=== PATIENT | female | born 2000 | race Caucasian/White ===

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

== ENCOUNTER 2020-05-15 15:25 | Outpatient (CLI) | payer OTHER ==
[2020-05-15 17:16] LABS: APPEARANCE,URINE SLIGHTLY-CLOUDY; BILIRUBIN,URINE NEGATIVE (NEGATIVE); COLOR,URINE YELLOW; GLUCOSE, URINE NEGATIVE (NEGATIVE); KETONES,URINE TRACE mg/dL (NEGATIVE); LEUKOCYTE ESTERASE,URINE LARGE (NEGATIVE); NITRITE,URINE NEGATIVE (NEGATIVE); PROTEIN,URINE NEGATIVE (NEGATIVE); URINE SPECIFIC GRAVITY 1.008; UROBILINOGEN,URINE NEGATIVE mg/dL (<2.0)
--- NOTE | 2020-05-15 17:39 | Non Stress Test Report ---
Non Stress Test Datetime Report Generated by CPN: 05/15/2020 17:38 DEMOGRAPHIC Test Number: 1 EGA NST: 33.0 VITAL SIGNS Temperature - NST: 99.8 Pulse - NST: 86 RESP - NST: 16 NBPSYS NST: 116 NBPDIA NST: 57 MONITORING Monitor Explained: Monitor Explained; Test Explained; Patient Verbalized Understanding Time on Monitor: 05/15/2020 15:47 Time off Monitor: 05/15/2020 17:06 NST Duration: 79 NST INTERVENTIONS NST Interventions: PO Hydration; IV Fluids; Reposition Patient Physician Notified NST: Dr Agapito BABY A: [id number] BABY A Movement : Present Contraction Frequency : 2-10 FHR Baseline : 150 Accelerations : 15X15 Decelerations : None Variability : Moderate 6-25bpm NST Review: Meets Criteria for Reactive NST NST Review and Verified By : Daysi Sullivan RN NST Results: Reactive NST REPORT Report Trigger: Send Report
[2020-05-15 17:40] LABS: URINE AMPHETAMINES SCREEN NEGATIVE; URINE BARBITURATES SCREEN NEGATIVE; URINE BENZODIAZEPINES SCREEN NEGATIVE; URINE COCAINE SCREEN NEGATIVE; URINE MARIJUANA (THC) SCREEN NEGATIVE; URINE METHADONE SCREEN NEGATIVE; URINE PHENCYCLIDINE SCREEN NEGATIVE
[2020-05-15] MEDS ORDERED: LIDOCAINE 1% INJ-PF (10 MG/ML) 30 ML SDV INFIL ONE (17:50)
[2020-05-15] MEDS: CEFTRIAXONE INJ 1000 MG VIAL ONE (18:02)
[2020-05-15] MEDS: RINGERS SOLUTION,LACTATED 1,000 ML IV PRN (18:03)
[2020-05-15] MEDS: HYDROXYZINE PAMOATE 50 MG CAPSULE ONE (18:04)
[2020-05-15] MEDS: HYDROXYZINE PAMOATE 50 MG CAPSULE PO ONE (18:04)
[2020-05-15] MEDS ORDERED: CEFTRIAXONE INJ 1000 MG VIAL IV ONE (18:10)
--- NOTE | 2020-05-15 18:55 | RADIOLOGY REPORT (SQ) ---
EXAM DESCRIPTION: U/S OB LIMITED IMAGES COMPLETED DATE/TIME: 05/15/2020 5:49 pm REASON FOR STUDY: CERVICAL LENGTH COMPARISON: None. TECHNIQUE: Limited transvaginal grayscale ultrasound for evaluation of specific requested obstetrica l parameters. LIMITATIONS: None. FINDINGS: CERVICAL LENGTH: 2.2 cm Closed. LvP: 5.5 cm FHR: 141 beats per minute. PRESENTATION: Cephalic. PLACENTA: Not assessed ANATOMY: Not assessed OTHER: No other significant findings. IMPRESSION: LIMITED OBSTETRICAL ULTRASOUND WITH MEASURED PARAMETERS DELINEATED ABOVE. Trimester of : Third trimester - 28 weeks to delivery. TECHNICAL DOCUMENTATION: JOB ID: [id number] [employer]- All Rights Reserved Reading location - IP/workstation name: [email or web address]
== END 2020-05-15 18:14 | disposition home or self-care (01) ==
LOC: LC 15:25
PROVIDERS: ATTEND Obstetrics & Gynecology
DX: O23.43 Unspecified infection of urinary tract in pregnancy, third trimester (principal); O47.03 False labor before 37 completed weeks of gestation, third trimester; Z3A.33 33 weeks gestation of pregnancy
CPT/HCPCS: 59025; 87086; 81005; 80307; 76815; J0696

== ENCOUNTER 2020-05-22 14:23 | Outpatient (CLI) | payer OTHER ==
[2020-05-22 16:04] LABS: APPEARANCE,URINE CLEAR; BILIRUBIN,URINE NEGATIVE (NEGATIVE); COLOR,URINE YELLOW; GLUCOSE, URINE NEGATIVE (NEGATIVE); KETONES,URINE NEGATIVE (NEGATIVE); LEUKOCYTE ESTERASE,URINE LARGE (NEGATIVE); NITRITE,URINE NEGATIVE (NEGATIVE); PROTEIN,URINE NEGATIVE (NEGATIVE); UROBILINOGEN,URINE NEGATIVE mg/dL (<2.0)
[2020-05-22 16:21] LABS: URINE AMPHETAMINES SCREEN NEGATIVE; URINE BARBITURATES SCREEN NEGATIVE; URINE BENZODIAZEPINES SCREEN NEGATIVE; URINE COCAINE SCREEN NEGATIVE; URINE MARIJUANA (THC) SCREEN NEGATIVE; URINE METHADONE SCREEN NEGATIVE; URINE PHENCYCLIDINE SCREEN NEGATIVE
--- NOTE | 2020-05-22 16:21 | Non Stress Test Report ---
Non Stress Test Datetime Report Generated by CPN: 05/22/2020 16:21 DEMOGRAPHIC EGA NST: 34.0 INDICATION Indication for Study (NST) Other: contractions/back pain VITAL SIGNS Temperature - NST: 97.6 MONITORING Monitor Explained: Monitor Explained; Test Explained; Patient Verbalized Understanding Time on Monitor: 05/22/2020 14:40 Time off Monitor: 05/22/2020 16:15 NST Duration: 95 NST INTERVENTIONS NST Interventions: PO Hydration Physician Notified NST: P. Avalos, CNM BABY A: [id number] BABY A Movement : Present Contraction Frequency : Irregular FHR Baseline : 150 Accelerations : 15X15 Decelerations : None Variability : Moderate 6-25bpm NST Review: Meets Criteria for Reactive NST NST Review and Verified By : Chito Rosa RN NST Results: Reactive NST REPORT Report Trigger: Send Report
== END 2020-05-22 16:25 | disposition home or self-care (01) ==
LOC: LC 14:23
PROVIDERS: ATTEND Obstetrics & Gynecology Gynecology
DX: O47.03 False labor before 37 completed weeks of gestation, third trimester (principal); Z3A.34 34 weeks gestation of pregnancy
CPT/HCPCS: 59025; 80307; 81001

== ENCOUNTER 2020-06-03 17:50 | Outpatient (CLI) | payer OTHER ==
[2020-06-03] MEDS ORDERED: RINGERS SOLUTION,LACTATED 1,000 ML IV PRN (18:58)
[2020-06-03 19:33] LABS: APPEARANCE,URINE CLEAR; BILIRUBIN,URINE NEGATIVE (NEGATIVE); COLOR,URINE STRAW; GLUCOSE, URINE NEGATIVE (NEGATIVE); KETONES,URINE 20 mg/dL (NEGATIVE); LEUKOCYTE ESTERASE,URINE SMALL (NEGATIVE); NITRITE,URINE NEGATIVE (NEGATIVE); PROTEIN,URINE NEGATIVE (NEGATIVE); URINE SPECIFIC GRAVITY 1.002; UROBILINOGEN,URINE NEGATIVE mg/dL (<2.0)
[2020-06-03 19:54] LABS: URINE AMPHETAMINES SCREEN NEGATIVE; URINE BARBITURATES SCREEN NEGATIVE; URINE BENZODIAZEPINES SCREEN NEGATIVE; URINE COCAINE SCREEN NEGATIVE; URINE MARIJUANA (THC) SCREEN NEGATIVE; URINE METHADONE SCREEN NEGATIVE; URINE PHENCYCLIDINE SCREEN NEGATIVE
--- NOTE | 2020-06-03 20:22 | Non Stress Test Report ---
Non Stress Test Datetime Report Generated by CPN: 06/03/2020 20:21 DEMOGRAPHIC EGA NST: 35.5 INDICATION Indication for Study (NST) Other: LC- ctx URINE RESULTS Urine Ketones - NST: Positive MONITORING Monitor Explained: Monitor Explained; Test Explained; Patient Verbalized Understanding Time on Monitor: 06/03/2020 18:13 Time off Monitor: 06/03/2020 20:11 NST Duration: 118 NST INTERVENTIONS NST Interventions: PO Hydration; IV Fluids; Reposition Patient Physician Notified NST: Dr. Odell BABY A: [id number] BABY A Movement : Present Contraction Frequency : 2-5 FHR Baseline : 135 Accelerations : 15X15 Decelerations : None Variability : Moderate 6-25bpm NST Review: Meets Criteria for Reactive NST NST Review and Verified By : Court Melendez RN NST Results: Reactive NST REPORT Report Trigger: Send Report
== END 2020-06-03 20:20 | disposition home or self-care (01) ==
LOC: LC 17:50
PROVIDERS: ATTEND Obstetrics & Gynecology
DX: O26.893 Other specified pregnancy related conditions, third trimester (principal); Z3A.35 35 weeks gestation of pregnancy
CPT/HCPCS: 59025; 80307; 81001